=== PATIENT | female | born 1970 | race Asian ===

== ENCOUNTER 2021-07-25 21:48 | Emergency (ER) | payer BC ==
--- NOTE | 2021-07-25 23:14 | Emergency Department Report ---
ED General Adult HPI - General Chief complaint: Skin/Abscess/Foreign Body Stated complaint: MULTIPLE PAINFUL CYSTS Source: patient Mode of arrival: Ambulatory Limitations: No Limitations - History of Present Illness Initial comments: Patient is a 50-year-old female with history of chronic tobacco abuse who presents to the ED with complaint of acute onset persistent painful swelling mild erythematous maculopapular rash in suprapubic area for the last 1 week. Patient states that the pain in the suprapubic area is worsened in the last 4 days. Patient denies fever, chills, nausea, vomiting, dizziness, syncope, abdominal pain, chest pain, shortness of breath, dysuria, urinary frequency and urgency, traumatic injury or back pain. MD Complaint: Painful swollen painful mild erythematous maculopapular rash on suprapubic -: Sudden, week(s) (1) Location: abdomen (Suprapubic area), pelvis (Suprapubic area) Radiation: non-radiation Severity scale (0 -10): 7 Quality: aching, sharp Consistency: constant Improves with: none Worsens with: movement, other (Palpation) Associated Symptoms: denies other symptoms, rash (Mild erythematous maculopapular painful rash on suprapubic area). denies: confusion, chest pain, cough, diaphoresis, fever/chills, headaches, loss of appetite, malaise, nausea/vomiting, shortness of breath, syncope, weakness, other Treatments Prior to Arrival: none - Related Data Previous Rx's Medication Instructions Recorded Last Taken Type Ibuprofen [Motrin] 800 mg PO Q8HR PRN #30 tablet 07/25/21 Unknown Rx Sulfamethoxazole/Trimethoprim 1 each PO Q12H #20 tablet 07/25/21 Unknown Rx [Bactrim DS TAB] ED Review of Systems ROS: Stated complaint: MULTIPLE PAINFUL CYSTS Other details as noted in HPI Constitutional: denies: chills, fever Eyes: denies: eye pain, eye discharge, vision change ENT: denies: ear pain, throat pain Respiratory: denies: cough, shortness of breath, wheezing Cardiovascular: denies: chest pain, palpitations Endocrine: no symptoms reported Gastrointestinal: abdominal pain (Mild suprapubic pain due to mild erythematous maculopapular rash). denies: nausea, vomiting, diarrhea Genitourinary: denies: urgency, dysuria, discharge Musculoskeletal: denies: back pain, joint swelling, arthralgia Skin: rash (Mild erythematous mildly swollen maculopapular rash with pain on suprapubic area), change in color. denies: lesions Neurological: denies: headache, weakness, paresthesias Psychiatric: denies: anxiety, depression Hematological/Lymphatic: denies: easy bleeding, easy bruising ED Past Medical Hx - Past Medical History Previous Medical History?: No - Surgical History Past Surgical History?: No - Social History Smoking Status: Never Smoker Substance Use Type: Alcohol - Medications Home Medications: Home Medications Medication Instructions Recorded Confirmed Last Taken Type Ibuprofen [Motrin] 800 mg PO Q8HR PRN #30 tablet 07/25/21 Unknown Rx Sulfamethoxazole/Trimethoprim 1 each PO Q12H #20 tablet 07/25/21 Unknown Rx [Bactrim DS TAB] ED Physical Exam - General Limitations: No Limitations General appearance: alert, in no apparent distress - Head Head exam: Present: atraumatic, normocephalic, normal inspection - Eye Eye exam: Present: normal appearance, PERRL, EOMI Pupils: Present: normal accommodation - ENT ENT exam: Present: normal exam, normal orophraynx, mucous membranes moist, TM's normal bilaterally, normal external ear exam - Neck Neck exam: Present: normal inspection, full ROM - Respiratory Respiratory exam: Present: normal lung sounds bilaterally. Absent: respiratory distress, wheezes, rales, rhonchi, stridor, chest wall tenderness, accessory muscle use, decreased breath sounds, prolonged expiratory - Cardiovascular Cardiovascular Exam: Present: regular rate, normal rhythm, normal heart sounds. Absent: systolic murmur, diastolic murmur, rubs, gallop - GI/Abdominal GI/Abdominal exam: Present: soft, tenderness (Palpable mild suprapubic tenderness due to a nonfluctuant mild erythematous maculopapular swollen rash), normal bowel sounds. 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 Faulkner present) - Extremities Exam Extremities exam: Present: normal inspection, full ROM, normal capillary refill - Back Exam Back exam: Present: normal inspection, full ROM. Absent: tenderness, CVA tenderness (R), CVA tenderness (L), muscle spasm, paraspinal tenderness, vertebral tenderness - Neurological Exam Neurological exam: Present: alert, oriented X3, CN II-XII intact, normal gait, reflexes normal - Psychiatric Psychiatric exam: Present: normal affect, normal mood - Skin Skin exam: Present: warm, dry, intact, normal color, rash (Mild erythematous maculopapular nonfluctuant tender rash on suprapubic area), erythema ED Course Vital Signs 07/25/21 22:45 Temperature 98.4 F Pulse Rate 86 Respiratory 18 Rate Blood Pressure 131/63 O2 Sat by Pulse 100 Oximetry ED Medical Decision Making - Medical Decision Making This is a 50-year-old female with history of chronic tobacco abuse who presents to the ED with complaint of acute onset persistent painful swelling mild erythematous maculopapular rash in suprapubic area for the last 1 week. Patient states that the pain in the suprapubic area is worsened in the last 4 days. In the ED, patient is alert and oriented x3 and is not in any distress. Patient is hemodynamically stable. Patient was treated for pain and also given initial oral antibiotics in the ED based on the history and physical exam findings. Patient was therefore discharged home on pain medication and oral antibiotics and advised to follow-up with her primary care physician in 7 to 10 days for reevaluation or return to the ED immediately if symptoms get worse. - Differential Diagnosis Cellulitis; cutaneous abscess; folliculitis; Critical care attestation.: If time is entered above; I have spent that time in minutes in the direct care of this critically ill patient, excluding procedure time. ED Disposition Clinical Impression: Acute folliculitis, Pelvic cellulitis in female Disposition: 01 HOME / SELF CARE / HOMELESS Is pt being admited?: No Does the pt Need Aspirin: No Condition: Stable Instructions: Cellulitis, Adult, [id number], Folliculitis Additional Instructions: Take medication with food, drink plenty of fluids and follow-up with your primary care physician in 7 to 10 days for reevaluation. Return to the ED immediately if symptoms get worse Prescriptions: Sulfamethoxazole/Trimethoprim [Bactrim DS TAB] 1 each PO Q12H #20 tablet Ibuprofen [Motrin] 800 mg PO Q8HR PRN #30 tablet PRN Reason: Pain , Severe (7-10) Referrals: [facility] [Provider Group] - 7-10 days Time of Disposition: 23:15 Print Language: [id number]
[2021-07-25] MEDS ORDERED: SULFAMETHOXAZOLE/TRIMETHOPRIM 800/160MG DS TAB PO ONE (23:17)
[2021-07-25] MEDS ORDERED: ONDANSETRON 4 MG ODT TAB PO ONE (23:17)
[2021-07-25] MEDS ORDERED: ACETAMINOPHEN 500 MG TAB PO ONE (23:17)
[2021-07-25] MEDS ORDERED: IBUPROFEN 600 MG TAB PO ONE (23:17)
[2021-07-26 00:48] VITALS: BP 106/62
== END 2021-07-26 00:44 | disposition home or self-care (01) ==
LOC: ED 21:48
DX: N73.2 Unspecified parametritis and pelvic cellulitis (principal); L73.9 Follicular disorder, unspecified
CPT/HCPCS: 99283; J3490; Q0162